=== PATIENT | female | born 1965 | race Two or more races ===

== ENCOUNTER 2018-05-13 08:23 | Emergency (ER) | payer MEDICAID ==
[~2018-05-13] VITALS: Ht 157.5 cm; Wt 95.3 kg
[2018-05-13] MEDS ORDERED: cloNIDine HCL 0.1 MG TAB PO ONE (08:45)
[2018-05-13 10:03] LABS: Basophils # (auto) 0.1 uL; Basophils % (auto) 1.2 % (0.0-2.0); Eosinophils # (auto) 0.1 uL; Eosinophils % (auto) 1.2 % (0.0-7.0); Hematocrit 41.7 % (36.0-46.0); Hemoglobin 14.2 g/dL (12.2-16.2); Lymphocytes # (auto) 1.9 uL; Lymphocytes % (auto) 28.7 % (10.0-50.0); Mean Corpuscular Hemoglobin 30.7 pg (28.0-32.0); Mean Corpuscular Hgb Conc. 34.2 g/dL (32.0-36.0); Mean Corpuscular Volume 89.9 fL (80.0-100.0); Monocytes # (auto) 0.4 uL; Monocytes % (auto) 5.6 % (0.0-12.0); Neutrophils # (auto) 4.3 uL; Neutrophils % (auto) 63.3 % (37.0-80.0); Nucleated Red Blood Cells % 0.1 %; Platelet Count (auto) 201 10^3/uL (140-450); Red Blood Cells 4.64 10^6/uL (4.0-5.20); White Blood Cell 6.8 10^3/uL (4.4-10.8)
[2018-05-13 10:28] LABS: Alanine Aminotransferase 100 U/L (13-56); Albumin 3.7 g/dL (3.4-5.0); Alkaline Phosphatase 78 U/L (45-117); Anion Gap 5 (5-15); Aspartate Aminotransferase 58 U/L (15-37); BUN/Creatinine Ratio 7.7; Bilirubin, Total 0.5 mg/dL (0.2-1.0); Blood Urea Nitrogen 5 mg/dL (7-18); Calcium 8.5 mg/dL (8.5-10.1); Carbon Dioxide 28 mmol/L (21-32); Chloride 107 mmol/L (98-107); GFR African American 122 mL/min; GFR Non-African American 101 mL/min; Glucose 141 mg/dL (74-106); Potassium 3.2 mmol/L (3.5-5.1); Sodium 140 mmol/L (136-145); Total Protein 7.8 g/dL (6.4-8.2)
[2018-05-13 10:56] VITALS: BP 150/74
[2018-05-13 15:24] LABS: Urine Bacteria NONE SEEN /hpf (None Seen); Urine Blood Negative /uL (Negative); Urine Mucus FEW (None Seen); Urine WBC 2 /hpf (0 - 5)
== END 2018-05-13 10:57 | disposition home or self-care (01) ==
LOC: ER 08:23
DX: I10 Essential (primary) hypertension (principal); E11.9 Type 2 diabetes mellitus without complications
CPT/HCPCS: 36415; 80053; 81001; 84484; 85025; 93005

== ENCOUNTER 2018-06-10 14:09 | Emergency (ER) | payer MEDICAID ==
[~2018-06-10] VITALS: Ht 157.5 cm; Wt 95.3 kg
[2018-06-10] MEDS ORDERED: LORazepam 0.5 MG TAB PO ONE (15:00)
[2018-06-10] MEDS ORDERED: cloNIDine HCL 0.1 MG TAB ONE (15:35)
[2018-06-10] MEDS ORDERED: cloNIDine HCL 0.1 MG TAB PO ONE (16:15)
[2018-06-10] MEDS ORDERED: amLODIPine BESYLATE 5 MG TAB PO ONE (16:30)
[2018-06-10 17:55] VITALS: BP 189/99
== END 2018-06-10 18:45 | disposition home or self-care (01) ==
LOC: ER 14:15
DX: G56.02 Carpal tunnel syndrome, left upper limb (principal); E11.9 Type 2 diabetes mellitus without complications; I10 Essential (primary) hypertension
CPT/HCPCS: 73110; 93005

== ENCOUNTER 2018-11-08 09:00 | Emergency (ER) | payer MEDICAID ==
[~2018-11-08] VITALS: Ht 157.5 cm; Wt 97.1 kg
[2018-11-08 11:15] VITALS: BP 170/78
== END 2018-11-08 11:25 | disposition home or self-care (01) ==
LOC: ER 09:00
DX: R05 Cough (principal); R50.9 Fever, unspecified; J02.9 Acute pharyngitis, unspecified; I10 Essential (primary) hypertension; E11.9 Type 2 diabetes mellitus without complications

== ENCOUNTER 2020-11-13 14:35 | Inpatient (IN) | payer MEDICAID ==
[~2020-11-13] VITALS: Ht 157.5 cm; Wt 99.3 kg
[2020-11-13 15:22] LABS: Basophils # (auto) 0.1 10 ^3/uL (0-0.2); Basophils % (auto) 0.9 % (0.0-2.0); Eosinophils # (auto) 0.1 10 ^3/uL (0-0.8); Eosinophils % (auto) 1.8 % (0.0-7.0); Hematocrit 43.2 % (36.0-46.0); Hemoglobin 14.9 g/dL (12.2-16.2); Lymphocytes # (auto) 3.6 10 ^3/uL (0.4-5.4); Lymphocytes % (auto) 43.3 % (10.0-50.0); Mean Corpuscular Hemoglobin 30.5 pg (28.0-32.0); Mean Corpuscular Hgb Conc. 34.6 g/dL (32.0-36.0); Mean Corpuscular Volume 88.2 fL (80.0-100.0); Monocytes # (auto) 0.5 10 ^3/uL (0-1.3); Monocytes % (auto) 6.3 % (0.0-12.0); Neutrophils # (auto) 3.9 10 ^3/uL (1.6-8.6); Neutrophils % (auto) 47.7 % (37.0-80.0); Nucleated Red Blood Cells % 0.1 %; Platelet Count (auto) 239 10^3/uL (140-450); Red Blood Cells 4.89 10^6/uL (4.0-5.20); Red Cell Distribution Width 13.5 % (11.8-14.3); White Blood Cell 8.2 10^3/uL (4.4-10.8)
[2020-11-13 15:39] LABS: Albumin 3.8 g/dL (3.4-5.0); Anion Gap 8 (5-15); Blood Urea Nitrogen 9 mg/dL (7-18); Calcium 9.2 mg/dL (8.5-10.1); Carbon Dioxide 26 mmol/L (21-32); Chloride 107 mmol/L (98-107); Glucose 109 mg/dL (74-106); Potassium 3.5 mmol/L (3.5-5.1); Sodium 141 mmol/L (136-145)
[2020-11-13 15:45] LABS: INR 0.96 (0.9-1.15); Partial Thromboplastin Time 26.5 sec (23.0-31.2)
[2020-11-13 16:01] LABS: BUN/Creatinine Ratio 13.4; GFR African American 117 mL/min; GFR Non-African American 96 mL/min
[2020-11-13 16:08] LABS: Alanine Aminotransferase 50 U/L (13-56); Alkaline Phosphatase 74 U/L (45-117); Aspartate Aminotransferase 29 U/L (15-37); Bilirubin, Total 0.3 mg/dL (0.2-1.0); Total Protein 7.9 g/dL (6.4-8.2)
[2020-11-13] MEDS ORDERED: LABETALOL HCL 5 MG/ML 4ML SYRINGE IV ONE ×2 (16:30→18:45)
[2020-11-13] MEDS ORDERED: NITROGLYCERIN 0.4 MG SL TAB SL ONE (17:15)
[2020-11-13] MEDS ORDERED: ASPirin 81 mg TAB PO ONE (17:15)
[2020-11-13] MEDS ORDERED: amLODIPine BESYLATE 5 MG TAB ONE (17:23)
[2020-11-13] MEDS ORDERED: amLODIPine BESYLATE 5 MG TAB PO ONE (17:30)
[2020-11-13] MEDS: hydrALAZINE HCL 20 MG/ML VL IV PRN (18:13)
[2020-11-13] MEDS ORDERED: MORPHINE SULF INJ 2 MG/ML SYRINGE 1ML IV PRN ×2 (18:15)
[2020-11-13] MEDS ORDERED: NITROGLYCERIN 0.4 MG SL TAB SL PRN (18:15)
[2020-11-13] MEDS ORDERED: DEXTROSE (50%) 50ML SYRG IV PRN (18:15)
[2020-11-13] MEDS ORDERED: ACETAMINOPHEN 500 MG TAB PO PRN (18:15)
[2020-11-13] MEDS ORDERED: ONDANSETRON HCL 4 MG/2 ML VIAL IV PRN (18:15)
[2020-11-13] MEDS ORDERED: HYDROcodone-ACET 5/325MG TAB PO PRN (18:15)
[2020-11-13 19:08] LABS: CRP High Sensitivity 1.44 mg/dL (< 0.3)
[2020-11-13] MEDS ORDERED: METOPROLOL TARTRATE 25 MG TAB PO SCH (22:00)
[2020-11-13] MEDS: ACCU-CHEK COMFORT CURVE STRIP VI SCH (22:30)
[2020-11-13] MEDS: InsuLIN REG 1unit/0.01ml Soln (100units/ml) SC SCH (22:30)
[2020-11-13] MEDS: ATORVASTATIN 20 MG TAB PO SCH (22:30)
[2020-11-13 22:37] LABS: Urine Bacteria NONE SEEN /hpf (None Seen); Urine Blood Negative /uL (Negative); Urine Mucus FEW (None Seen); Urine Specific Gravity 1.012 (1.001-1.035); Urine WBC 2 /hpf (0 - 5)
[2020-11-14] VITALS (7 sets, daily range): BP systolic 120–180; BP diastolic 65–91
[2020-11-14] MEDS: hydrALAZINE HCL 20 MG/ML VL IV PRN (01:20)
[2020-11-14 06:01] LABS: Basophils # (auto) 0.1 10 ^3/uL (0-0.2); Basophils % (auto) 0.7 % (0.0-2.0); Eosinophils # (auto) 0.1 10 ^3/uL (0-0.8); Eosinophils % (auto) 1.6 % (0.0-7.0); Hemoglobin 14.2 g/dL (12.2-16.2); Lymphocytes # (auto) 3.2 10 ^3/uL (0.4-5.4); Lymphocytes % (auto) 35.2 % (10.0-50.0); Mean Corpuscular Hemoglobin 30.9 pg (28.0-32.0); Mean Corpuscular Hgb Conc. 34.5 g/dL (32.0-36.0); Mean Corpuscular Volume 89.4 fL (80.0-100.0); Monocytes # (auto) 0.7 10 ^3/uL (0-1.3); Monocytes % (auto) 7.3 % (0.0-12.0); Neutrophils % (auto) 55.2 % (37.0-80.0); Platelet Count (auto) 232 10^3/uL (140-450); Red Blood Cells 4.59 10^6/uL (4.0-5.20); White Blood Cell 9.1 10^3/uL (4.4-10.8)
[2020-11-14] MEDS ORDERED: cloNIDine HCL 0.1 MG TAB PO ONE (06:15)
[2020-11-14 06:19] LABS: INR 0.98 (0.9-1.15); Partial Thromboplastin Time 26.2 sec (23.0-31.2)
[2020-11-14 06:21] LABS: Potassium 3.8 mmol/L (3.5-5.1)
[2020-11-14 06:29] LABS: BUN/Creatinine Ratio 14.5; Calcium 9.3 mg/dL (8.5-10.1)
[2020-11-14] MEDS: ACCU-CHEK COMFORT CURVE STRIP VI SCH ×4 (07:01→21:59)
[2020-11-14] MEDS: InsuLIN REG 1unit/0.01ml Soln (100units/ml) SC SCH ×4 (07:03→21:59)
[2020-11-14] MEDS: METOPROLOL TARTRATE 25 MG TAB PO SCH ×2 (09:37→22:20)
[2020-11-14] MEDS: ASPirin-EC 81 mg tab PO SCH (09:37)
[2020-11-14] MEDS: FAMOTIDINE 20 MG TAB PO SCH (09:37)
[2020-11-14] MEDS ORDERED: METF-929 PO (09:53)
[2020-11-14] MEDS ORDERED: LOSA-39 PO (09:53)
[2020-11-14] MEDS ORDERED: CLON0.1T PO (09:55)
[2020-11-14] MEDS ORDERED: LISINOPRIL 10 MG TAB PO SCH ×2 (10:00)
[2020-11-14] MEDS ORDERED: cloNIDine HCL 0.1 MG TAB PO PRN (11:00)
[2020-11-14] MEDS ORDERED: OPTISON 3ml Vial for INJ IV ONE (12:07)
[2020-11-14] MEDS ORDERED: IPRATROPIUM BROM 0.5 MG/2.5ML INH SOL NEB PRN (17:15)
[2020-11-14] MEDS ORDERED: ALBUTEROL SULF 2.5 MG/0.5ML(0.5%) NEB SOLN NEB PRN (17:15)
[2020-11-14] MEDS ORDERED: POTASSIUM CHL 10 Meq TABLET PO ONE (17:30)
[2020-11-14] MEDS ORDERED: FUROSEMIDE 40 MG/4 ML VIAL IV ONE (17:30)
[2020-11-14] MEDS: ATORVASTATIN 20 MG TAB PO SCH (21:56)
[2020-11-15 05:00] VITALS: BP 142/70
[2020-11-15] MEDS: ACCU-CHEK COMFORT CURVE STRIP VI SCH ×3 (06:17→17:57)
[2020-11-15] MEDS: InsuLIN REG 1unit/0.01ml Soln (100units/ml) SC SCH ×3 (06:17→17:57)
[2020-11-15 07:08] LABS: Basophils # (auto) 0.1 10 ^3/uL (0-0.2); Basophils % (auto) 0.5 % (0.0-2.0); Eosinophils # (auto) 0.3 10 ^3/uL (0-0.8); Eosinophils % (auto) 2.7 % (0.0-7.0); Hematocrit 40.2 % (36.0-46.0); Hemoglobin 13.5 g/dL (12.2-16.2); Lymphocytes # (auto) 4.1 10 ^3/uL (0.4-5.4); Lymphocytes % (auto) 43.4 % (10.0-50.0); Mean Corpuscular Hemoglobin 30.4 pg (28.0-32.0); Mean Corpuscular Hgb Conc. 33.7 g/dL (32.0-36.0); Mean Corpuscular Volume 90.1 fL (80.0-100.0); Monocytes # (auto) 0.7 10 ^3/uL (0-1.3); Monocytes % (auto) 7.8 % (0.0-12.0); Neutrophils # (auto) 4.3 10 ^3/uL (1.6-8.6); Neutrophils % (auto) 45.6 % (37.0-80.0); Nucleated Red Blood Cells % 0.1 %; Platelet Count (auto) 227 10^3/uL (140-450); Red Blood Cells 4.46 10^6/uL (4.0-5.20); Red Cell Distribution Width 13.9 % (11.8-14.3); White Blood Cell 9.4 10^3/uL (4.4-10.8)
[2020-11-15 07:32] LABS: Albumin 3.3 g/dL (3.4-5.0); Calcium 9.1 mg/dL (8.5-10.1); Potassium 3.6 mmol/L (3.5-5.1)
[2020-11-15 07:37] LABS: BUN/Creatinine Ratio 30.9; Bilirubin, Total 0.4 mg/dL (0.2-1.0); Total Protein 7.1 g/dL (6.4-8.2)
[2020-11-15] MEDS ORDERED: ADENOSINE 83 MG in GIVE UN-DILUTED 0 ML IV STA (08:27)
[2020-11-15] MEDS: LOSARTAN POTASSIUM 50 MG TAB PO SCH ×2 (08:59→10:36)
[2020-11-15] MEDS: ASPirin-EC 81 mg tab PO SCH (08:59)
[2020-11-15] MEDS: METOPROLOL TARTRATE 25 MG TAB PO SCH ×2 (08:59→10:37)
[2020-11-15 09:00] VITALS: BP 163/79
[2020-11-15] MEDS: FAMOTIDINE 20 MG TAB PO SCH (09:00)
[2020-11-15] MEDS: FUROSEMIDE 40 MG/4 ML VIAL IV SCH ×2 (09:09→10:35)
[2020-11-15 13:00] VITALS: BP 191/76
[2020-11-15] MEDS ORDERED: ATOR20TA50 PO (13:02)
[2020-11-15] MEDS ORDERED: METO1TAB77 PO (13:02)
[2020-11-15] MEDS ORDERED: POTA10TA51 PO (16:05)
[2020-11-15] MEDS ORDERED: HYDR25TA4 PO (16:05)
[2020-11-15 16:54] VITALS: BP 151/62
== END 2020-11-15 18:00 | disposition home or self-care (01) | DRG 194 ==
LOC: ER 14:35 → TELE 18:02 → TELE-WESTW 23:41
PROVIDERS: ADMIT Nurse Practitioner Acute Care; ATTEND Internal Medicine
PROC: 4A12XM4 Monitoring of Cardiac Stress, External Approach (ICD-10-PCS; principal; 2020-11-15)
PROC: 3E073KZ Introduction of Other Diagnostic Substance into Coronary Artery, Percutaneous Approach (ICD-10-PCS; 2020-11-15)
DX: I11.0 Hypertensive heart disease with heart failure (principal); I16.1 Hypertensive emergency; I21.A1 Myocardial infarction type 2; E66.01 Morbid (severe) obesity due to excess calories; E11.65 Type 2 diabetes mellitus with hyperglycemia; Z68.41 Body mass index [BMI] 40.0-44.9, adult; I50.33 Acute on chronic diastolic (congestive) heart failure; E78.5 Hyperlipidemia, unspecified; F41.9 Anxiety disorder, unspecified; F12.90 Cannabis use, unspecified, uncomplicated; Z20.822 Contact with and (suspected) exposure to COVID-19; F15.90 Other stimulant use, unspecified, uncomplicated; F19.10 Other psychoactive substance abuse, uncomplicated; Z79.84 Long term (current) use of oral hypoglycemic drugs
CPT/HCPCS: 36415; 71045; 78452; 80048; 80053; 80061; 81001; 82962; 83036; 84484; 85025; 85610; 85730; 86141; 87426; 93005; 93017; 93306; 96374; 96375; G0378; J0153; J1815; J3490; Q9956

== ENCOUNTER 2023-04-23 12:28 | Emergency (ER) | payer MEDICAID ==
[~2023-04-23] VITALS: Ht 157.5 cm; Wt 94.4 kg
[~2023-04-23 12:28] MED LIST: ATOR20TA50 PO; CLON0.1T PO; HYDR25TA4 PO; LOSA100T58 PO; METF-929 PO; METO1TAB77 PO; POTA10TA51 PO
[2023-04-23] MEDS ORDERED: cloNIDine HCL 0.1 MG TAB PO ONE (13:15)
[2023-04-23 13:59] VITALS: RESP 16; TEMP 97.8; O2SAT 97
[2023-04-23] MEDS ORDERED: HYDROcodone-ACET 5/325MG TAB PO ONE (14:15)
[2023-04-23 14:35] VITALS: BP 140/68; PULSE 51
[2023-04-23] MEDS ORDERED: IBUP-1456 PO ×2 (14:42)
[2023-04-23] MEDS ORDERED: METH-1182 PO (14:42)
== END 2023-04-23 14:46 | disposition home or self-care (01) ==
LOC: ER 12:28
DX: S23.41XA Sprain of ribs, initial encounter (principal); I10 Essential (primary) hypertension; F41.9 Anxiety disorder, unspecified; E11.9 Type 2 diabetes mellitus without complications; Z98.890 Other specified postprocedural states; Z79.899 Other long term (current) drug therapy; Z79.84 Long term (current) use of oral hypoglycemic drugs; W18.39XA Other fall on same level, initial encounter; Y93.89 Activity, other specified; Y92.89 Other specified places as the place of occurrence of the external cause; Y99.8 Other external cause status
CPT/HCPCS: 71101